=== PATIENT | female | born 1995 | race Caucasian/White ===

== ENCOUNTER 2021-04-13 11:33 | Emergency (ER) | payer SELFPAY ==
[2021-04-13 11:44] VITALS: BP 134/89; PULSE 100; RESP 18; TEMP 36.8; O2SAT 99
[2021-04-13 11:45] VITALS: BP 134/89; PULSE 100; RESP 18; TEMP 36.8; O2SAT 99
--- NOTE | 2021-04-13 12:39 | ED.DIZZY ---
HPI - Dizziness General Chief Complaint: Dizziness Stated Complaint: dizziness Time Seen by Provider: 04/13/21 13:00 Source: patient and RN notes reviewed Mode of arrival: ambulatory Limitations: no limitations History of Present Illness HPI Narrative: 25 year old [facility] complaints of headache in the frontal area of head which wraps around head going to back of head since Sunday. Patient reports that she has had some nausea but no emesis or any diarrhea. Patient reports that she has also had some intermittent dizziness and is tired and thinks that she some of her symptoms are related to her anemia. Patient denies any fevers, states has felt chills but no sweats,reports decrease in appetite but has been taking fluids. Patient reports no cough, nasal drainage, sore throat or any sinus congestion or any ear pain. Patient denies an history of migraines, denies any known exposure to COVID, has not had COVID immunizations. Orthostatic BP laying 130/81, sitting 138/88, standing 126/90. Patient reports that she had to call off work today. MD elicited complaint: dizziness and other (headache) Pertinent past history: anemia Onset (ago): day(s) (3) Related Data Allergies Allergy/AdvReac Type Severity Reaction Status Date / Time No Known Allergies Allergy Verified 04/13/21 11:51 Review of Systems Review of Systems: Narrative: CONSTITUTIONAL: Denies known fever, positive chills, or sweats. EYES: Denies visual changes, redness, or discharge. ENT: Denies rhinorrhea, congestion, sore throat, or otalgia. CARDIOVASCULAR: Denies chest pain, palpitations, or edema. RESPIRATORY: Denies cough or dyspnea. GASTROINTESTINAL: Denies abdominal pain,positive for nausea, no vomiting, or diarrhea. GENITOURINARY: Denies dysuria or hematuria. SKIN: Denies rash or itching. MUSCULOSKELETAL: Denies back pain, joint pain, or myalgia. NEUROLOGIC: Positive headaches since Sunday, no numbness, or weakness. PSYCHIATRIC: Denies anxiety or depression. All systems reviewed & are unremarkable except as noted in HPI and below PMFSH Past Medical History Medical History (Updated 04/18/21 @ 08:55 by Leslie Elmore NP) Anemia Surgical History Surgical History (Updated 04/18/21 @ 08:56 by Leslie Elmore NP) No history of previous surgery Family History Family History (Updated 04/13/21 @ 13:00 by Leslie Elmore NP) Father Cerebrovascular accident Hypertension Grandparent Diabetes mellitus Mother Hypertension Sibling Leukemia Social History Social History (Updated 04/13/21 @ 12:59 by Leslie Elmore NP) Smoking status: Never smoker Alcohol intake: never Substance use: never Living arrangements: alone Gender identity (if verbalized by the patient): Female Comments At time of signature, agree with nursing past medical, surgical, social and family history. There is no relevant family history pertinent to the presenting complaint Exam Narrative: Exam Narrative: GENERAL: Well-appearing, well-nourished, and in no acute distress. HEAD: Normocephalic, atraumatic. EYES: PERRLA and EOMI.no nystagmus ENT: Nares clear, no rhinorrhea or epistaxis. Mucous membranes moist.TM's normal with good light reflex, throat pink with no lesions or exudates, no tonsil enlargement. NECK: Supple.no lymphadenopathy CHEST: Clear to auscultation. No respiratory distress.SAO2 99% on room air HEART: Regular rate and rhythm. No murmur heard. Normal peripheral pulses. ABDOMEN: Soft, nontender, nondistended, normal active bowel sounds. reports some nausea, denies any vomiting or diarrhea. EXTREMITIES: Normal range of motion. No edema. SKIN: Warm, dry, no rash. NEURO: No focal deficits. Alert and oriented x3.headache discomfort for 3 days, gait steady, no acute dizziness with position changes, cranial nerves intact. Course Vital Signs Vital signs: Vital Signs Temperature 36.8 C 04/13/21 11:44 Pulse Rate 100 04/13/21 11
[2021-04-13 13:34] VITALS: BP 130/81; PULSE 84
[2021-04-13 13:36] VITALS: BP 138/88; PULSE 94
[2021-04-13 13:37] VITALS: BP 126/90; PULSE 96
== END 2021-04-13 14:02 | disposition home or self-care (01) ==
PROVIDERS: Emergency Provider Registered Nurse
DX: R51.9 Headache, unspecified (principal); R42 Dizziness and giddiness
CPT/HCPCS: 87426; 99203; C9803; G0463